=== PATIENT | male | born 1990 | race Caucasian/White ===

== ENCOUNTER 2019-03-24 22:41 | Emergency (ER) | payer MEDICAID ==
[~2019-03-24] VITALS: Ht 185.4 cm; Wt 90.7 kg
[2019-03-24 23:22] VITALS: BP 129/79
--- NOTE | 2019-03-24 23:25 | NUR ---
TO LOBBY A/W BED AMBULATORY
--- NOTE | 2019-03-25 00:05 | NUR ---
DR FABIAN AT BEDSIDE.
--- NOTE | 2019-03-25 00:05 | NUR ---
Brenda logan in [facility] - 03/25/[address] FABIAN AT [facility].
--- NOTE | 2019-03-25 00:42 | NUR ---
PT TAKEN TO BED 3
--- NOTE | 2019-03-25 00:58 | NUR ---
DR FABIAN AT BEDSIDE.
--- NOTE | 2019-03-25 01:00 | NUR ---
ASSESSMENT COMPLETE AT THIS TIME. PATIENT SITTING UP IN BED WITH RIGHT HAND SOAKING IN IODINE SOLUTION. NO NEEDS ADDRESSED AT THIS TIME. PATIENT REPORTS TWO NIGHTS AGO AT WORK HAVING HIS RIGHT HAND GO THROUGH GLASS ON THE FORK LIFT AT WORK. MULTIPLE LACERATION ON TOP HAND. SWELLING NOTED. FULL ROM TO HAND AND FINGERS. PATIENT AFRAID THAT THERE MAY BE GLASS STUCK IN HIS HAND. TETNUS UP TO DATE. NO PMH
[2019-03-25] MEDS ORDERED: LIDOCAINE/EPI 1% 1:100000 20 ML VIAL INJ ONE (01:10)
[2019-03-25] MEDS ORDERED: KETOROLAC 30 MG/ML VIAL IM ONE (01:20)
[2019-03-25] MEDS ORDERED: HYDROcodone/APAP 5/325 MG 1 TAB TAB PO ONE (01:20)
[2019-03-25] MEDS ORDERED: LIDOCAINE MPF 1% 0 ML ONE (01:32)
[2019-03-25] MEDS ORDERED: BACITRACIN OINT 500 UNITS/GM PKT TP ONE (04:00)
--- NOTE | 2019-03-25 04:26 | NUR ---
PT WOUND COVERED WITH NON ADHERENT DRESSING AND WRAPPED WITH ROLLER GAUZE AFTER BACITRACIN APPLIED.
--- NOTE | 2019-03-25 04:29 | NUR ---
VOLAR SPLINT PLACED ON PT R HAND, WRAPPED WITH TITO WRAP. +CSM
--- NOTE | 2019-03-25 04:50 | NUR ---
Patient discharged with v/s stable. Written and verbal after care instructions given and explained. Patient alert, oriented and verbalized understanding of instructions. Ambulatory with steady gait. All questions addressed prior to discharge. ID band removed. Patient advised to follow up with PMD. Rx of NAPROSYN, KEFLEX given. Patient educated on indication of medication including possible reaction and side effects. Opportunity to ask questions provided and answered.
[2019-03-25 04:58] VITALS: BP 122/75
== END 2019-03-25 04:50 | disposition home or self-care (01) ==
LOC: MED 22:41
DX: S61.411A Laceration without foreign body of right hand, initial encounter (principal); S60.221A Contusion of right hand, initial encounter; W22.8XXA Striking against or struck by other objects, initial encounter; Y93.89 Activity, other specified; Y92.89 Other specified places as the place of occurrence of the external cause; Y99.8 Other external cause status
CPT/HCPCS: 29125; 73130; 96372; 99283; J1885; J2001